=== PATIENT | female | born 1945 | race Caucasian/White ===

== ENCOUNTER 2018-05-11 13:15 | Outpatient (CLI) | payer MEDICARE, OTHER ==
[~2018-05-11] VITALS: Ht 157.5 cm; Wt 62.1 kg
[~2018-05-11 13:15] MED LIST: CETI10TA17 PO; LISI20TA PO; NF-FLON16G; OMEP-10 PO
[2018-05-11] MEDS ORDERED: OMEP20TA7 PO (15:02)
[2018-05-11] MEDS ORDERED: CETI10TA17 PO (15:02)
[2018-05-11] MEDS ORDERED: FLUT16SP22 NS (15:02)
[2018-05-13] MEDS ORDERED: ACHD5005 PO (11:19)
== END 2018-05-11 15:06 | disposition home or self-care (01) ==
LOC: PREOP 13:15
PROVIDERS: ATTEND Surgery
DX: Z01.818 Encounter for other preprocedural examination (principal)

== ENCOUNTER 2018-05-13 07:40 | Day surgery (SDC) | payer MEDICARE, OTHER ==
[~2018-05-13] VITALS: Ht 157.5 cm; Wt 62.1 kg
[~2018-05-13 07:40] MED LIST changes: +FLUT16SP22 NS; +OMEP20TA7 PO
[2018-05-13] MEDS ORDERED: LACTATED RINGERS 1,000 ML IV PRN (07:50)
[2018-05-13 08:00] VITALS: BP 172/96
[2018-05-13] MEDS ORDERED: ceFAZolin INJECTION 1,000 MG in NS (IVPB) 50 ML IV ONE (08:00)
[2018-05-13] MEDS ORDERED: metroNIDAZOLE 500MG/100ML IVPB 100 ML IV ONE (08:00)
[2018-05-13] MEDS ORDERED: FAMOTIDINE 20MG/2ML IV (PEPCID) IV ONE (08:30)
--- NOTE | 2018-05-13 09:03 | Progress Note-Pre Operative ---
Pre-Operative Progress Note H&P Reviewed The H&P was reviewed, patient examined and no changes noted. Date Seen by Provider: Apr 23, 2018 Time Seen by Provider: 11:00 Date H&P Reviewed: May 13, 2018 Time H&P Reviewed: 09:03 Pre-Operative Diagnosis: Gallstones SHADY MARTI MD May 13, 2018 09:03
[2018-05-13] MEDS ORDERED: BUP/EPI 0.5% 1:200,000 (SENSORCAINE) 30 ML VIAL ONE (09:11)
[2018-05-13] MEDS ORDERED: ROCURONIUM 10 MG/ML 5 ML SYRINGE IV ONE (09:18)
[2018-05-13] MEDS ORDERED: MIDAZOLAM 2 MG/2 ML (VERSED) VIAL ONE (09:18)
[2018-05-13] MEDS ORDERED: proPOfol 200 MG/20 ML (DIPRIVAN) VIAL IV ONE (09:18)
[2018-05-13] MEDS ORDERED: ONDANSETRON 4 MG/2 ML (SDV) Z0FRAN ONE (09:18)
[2018-05-13] MEDS ORDERED: DEXAMETHASONE 10 MG/ML (DECADRON) 1 ML VIAL ONE (09:18)
[2018-05-13] MEDS ORDERED: SEVOFLURANE (ULTANE) 15 ML INHAL SOLN ONE ×6 (09:18→10:53)
[2018-05-13] MEDS ORDERED: LIDOCAINE PF 2% 5 ML (XYLOCAINE) VIAL ONE (09:18)
[2018-05-13] MEDS ORDERED: fentaNYL INJECTION 100 MCG/2 ML AMP ONE ×2 (09:19→10:47)
[2018-05-13] MEDS ORDERED: GLYCOPYRROLATE 0.2 MG/ML (ROBINUL) 2 ML VIAL ONE (10:38)
[2018-05-13] MEDS ORDERED: NEOSTIGMINE 1 MG/ML 5 ML SYRINGE ONE (10:38)
--- NOTE | 2018-05-13 10:58 | Diagnostic Imaging Report ---
Clinical indication: Gallbladder removal with cholangiogram in operating room. Exam: Single limited x-ray image of the right upper quadrant region for intraoperative cholangiogram. Comparison: None. Findings and impression: A single image shows intraoperative cholangiogram postcholecystectomy with spillage of contrast into the duodenal C-loop. Please see surgeon's report for more detail. Fluoroscopy was provided for surgeons and a total of 18.8 seconds and 2.10 mGy was provided. Dictated by: Dictated on workstation # [id number]
[2018-05-13] MEDS ORDERED: MEPERIDINE (DEMEROL) INJ 50 MG/ML IVP ONE (11:15)
[2018-05-13] MEDS ORDERED: fentaNYL INJECTION 100 MCG/2 ML AMP IVP ONE (11:15)
[2018-05-13] MEDS ORDERED: PROMETHAZINE INJ 25 MG/ML (PHENERGAN) AMP IVP ONE (11:15)
--- NOTE | 2018-05-13 11:18 | Operative Report ---
Operative Report Date of Procedure/Surgery May 13, 2018 Surgeon (s) SHADY MARTI MD [employer] (s): N/A Post-Operative Diagnosis gallstones with chronic cholecystitis Normal cholangiogram Procedure Performed robotic-assisted cholecystectomy Intraoperative cholangiogram Description of Procedure Anesthesia Type: General Estimated blood loss (mL): minimal Specimen(s) collected/removed gallbladder with stones Description of the Procedure Indication for the procedure: This lady was found to have symptomatic gallstones. She was offered cholecystectomy using minimally invasive technique robotic assistance and cholangiogram. Informed consent was obtained after reviewing the operative details and complications of wound infection and bile leak. Description of procedure: She was placed supine on the operating table and general anesthesia induced. Ancef and Flagyl were administered intravenously as prophylaxis against wound infection. Sequential compression devices were placed around her legs, to minimize the risk of venous thrombosis. Abdomen was prepared and draped in the usual sterile manner. Pneumoperitoneum was established using a Veress needle introduced along the subumbilical region. Intra-abdominal pressure was maintained at 15 mmHg, using carbon dioxide insufflation. A 12 mm trocar was placed and anatomy visualized using the high definition, 3-dimensional laparoscope associated with da Bang system. Under direct view, I placed an 8 mm trocar over each side of the abdomen, followed by a 5 mm trocar over the left costal region. The patient was then turned into reverse Trendelenburg position, with the right side tilted up. The robotic system was then docked in place. The fundus of the gallbladder was retracted cephalad and the infundibulum grasped with Cadiere forceps. Thickened tissue around the neck of the gallbladder was incised using hook cautery, delineating the cystic duct, which is rather slender was controlled using hook cautery itself. Cystic duct was rather wide and I elected to perform cholangiogram. A Taut catheter was introduced into the cystic duct and the study obtained. It revealed a normal bile duct with no filling defects within it. Anatomy was unremarkable. The contrast flowed freely into the duodenum. The catheter was removed and the cystic duct controlled using locking clips. Cholecystectomy was then completed using hook cautery. Subhepatic space was irrigated with saline and the gallbladder placed in an Endo Catch bag, being removed via the subumbilical trocar site. The fascia over this incision was closed using #1 Vicryl. Skin incisions were closed using 4-0 Vicryl, in a subcuticular fashion. 0.5 percent Marcaine with epinephrine was infiltrated along the incisions, both preemptively and at the conclusion of the operation. She tolerated the procedure well and was extubated in the operating room and taken to the recovery room in a stable condition. Findings of the Procedure see op report Allergies and Home Medications Allergies Coded Allergies: doxycycline (Verified Allergy, Unknown, 05/11/18) erythromycin base (Verified Allergy, Unknown, 05/11/18) Home Medications Cetirizine HCl 10 Mg Tablet, 10 MG PO DAILY, (Reported) Fluticasone Propionate 16 Gm [place].susp, 1 SPRAY NS DAILY, (Reported) Lisinopril 20 Mg Tablet, 20 MG PO DAILY, (Reported) Omeprazole 20 Mg Tablet.dr, 20 MG PO DAILY, (Reported) Patient Home Medication List Home Medication List Reviewed: Yes SHADY MARTI MD May 13, 2018 11:18
[2018-05-13] MEDS ORDERED: ACHD5005 PO (11:19)
--- NOTE | 2018-05-13 11:20 | Discharge Inst-Simple/Standard ---
Discharge Inst-Standard Discharge Medications New, Converted or Re-Newed RX: RX on Chart Patient Instructions/Follow Up Plan of Care/Instructions/FU: Band-Aids off in 48 hours. Incentive spirometry. Follow-up in 3 weeks. Activity as Tolerated: Yes Discharge Diet: No Restrictions SHADY MARTI MD May 13, 2018 11:20
[2018-05-13] MEDS: ONDANSETRON 4 MG/2 ML (SDV) Z0FRAN IVP PRN ×2 (11:57→13:59)
[2018-05-13 12:40] VITALS: BP 134/62
[2018-05-13 12:45] VITALS: BP 134/62
--- NOTE | 2018-05-13 13:05 | Anesthesia-General Post-Op ---
General Patient Condition Mental Status/LOC: Same as Preop Cardiovascular: Satisfactory Nausea/Vomiting: Absent Respiratory: Satisfactory Pain: Controlled Complications: Absent Post Op Complications Complications None Follow Up Care/Instructions Patient Instructions None needed. Anesthesia/Patient Condition Patient Condition Patient is doing well, no complaints, stable vital signs, no apparent adverse anesthesia problems. No complications reported per nursing. MARLO STRE[address] CRNA May 13, 2018 13:05
[2018-05-13 13:10] VITALS: BP 124/65
[2018-05-13 13:40] VITALS: BP 159/89
[2018-05-13] MEDS ORDERED: METOCLOPRAMIDE INJ 10 MG/2 ML (REGLAN) ONE (13:45)
[2018-05-13] MEDS ORDERED: METOCLOPRAMIDE INJ 10 MG/2 ML (REGLAN) IVP ONE (13:45)
[2018-05-13] MEDS: fentaNYL INJECTION 100 MCG/2 ML AMP ONE ×2 (13:56→13:58)
== END 2018-05-13 13:00 | disposition home or self-care (01) ==
LOC: SDC 07:40
PROVIDERS: ATTEND Surgery
DX: K80.10 Calculus of gallbladder with chronic cholecystitis without obstruction (principal); I10 Essential (primary) hypertension; E78.5 Hyperlipidemia, unspecified; K21.9 Gastro-esophageal reflux disease without esophagitis; Z79.899 Other long term (current) drug therapy
CPT/HCPCS: 87081; 88304